=== PATIENT | male | born 1975 | race Caucasian/White ===

== ENCOUNTER 2016-09-17 15:06 | Emergency (ER) | payer BC ==
--- NOTE | 2016-09-17 15:56 | UC ---
Laceration HPI - HPI Summary HPI Summary: 41 y/o male presents to the urgent care c/o Left # 2 finger with a laceration with a bow saw around 1400pm. Pt reports he was cutting a branch when he cut his finger, he cleaned the wound with hydrogen peroxide and applied pressure. Bleeding stopped and pain is 5/10 now. Pt states last Tetanus shot 1 year ago. Pt denies fever, SOB, chest pain, N/V/D. Pt has not other complains. - History Of Current Complaint Chief Complaint: UCLaceration Stated Complaint: FINGER LAC Time Seen by Provider: 09/17/16 15:48 Hx Obtained From: Patient Laceration Location: Finger - Left #2 phalax with laceration near the MCPJ Onset/Duration: Sudden Onset, Lasting Hours, Still Present Severity: Moderate Pain Intensity: 5 Pain Scale Used: 0-10 Numeric Aggravating Factors: Movement Related History: Dominant Hand Right - Allergies/Home Medications Allergies/Adverse Reactions: Allergies Allergy/AdvReac Type Severity Reaction Status Date / Time No Known Allergies Allergy Verified 10/07/15 21:49 PMH/Surg Hx/FS Hx/Imm Hx Previously Healthy: Yes - Surgical History Surgical History: Yes Surgery Procedure, Year, and Place: NASAL PASSAGE OPENING - Family History Known Family History: Positive: None, Cardiac Disease - Social History Occupation: Employed Full-time Lives: With Family Alcohol Use: None Substance Use Type: None Smoking Status (MU): Never Smoked Tobacco - Immunization History Most Recent Tetanus Shot: UNKNOWN Review of Systems Constitutional: Negative Skin: Other - Superficial Laceration to #2 phalax near the MCPJ with a bow saw Eyes: Negative ENT: Negative Respiratory: Negative Cardiovascular: Negative Gastrointestinal: Negative Genitourinary: Negative Motor: Negative Neurovascular: Negative Musculoskeletal: Negative Neurological: Negative Psychological: Negative All Other Systems Reviewed And Are Negative: Yes Physical Exam Triage Information Reviewed: Yes Appearance: Well-Appearing, No Pain Distress, Well-Nourished, Thin Vital Signs: Initial Vital Signs Temp 98.3 F 09/17/16 15:18 Pulse 68 09/17/16 15:18 Resp 18 09/17/16 15:18 BP 97/58 09/17/16 15:18 Pulse Ox 98 09/17/16 15:18 Vital Signs Reviewed: Yes Eyes: Positive: Conjunctiva Clear - PERRLA, EOMI, fundi grossly normal ENT Exam: Normal ENT: Positive: Normal ENT inspection, Hearing grossly normal, Pharynx normal, TMs normal Dental Exam: Normal Neck exam: Normal Neck: Positive: Supple, Nontender, No Lymphadenopathy Respiratory Exam: Normal Respiratory: Positive: Chest non-tender, Lungs clear, Normal breath sounds Cardiovascular Exam: Normal Cardiovascular: Positive: RRR, No Murmur, Pulses Normal Abdominal Exam: Normal Abdomen Description: Positive: Nontender, No Organomegaly, Soft. Negative: CVA Tenderness (R), CVA Tenderness (L) Bowel Sounds: Positive: Present Musculoskeletal Exam: Normal Neurological Exam: Normal Psychological Exam: Normal Skin: Positive: significant lesion(s) - Rt # 2 phalax with superficial laceration near the MCPJ with a bow saw. Size: 2 1/2 cm FROM of phalanx, positive sensation, capillary refill intact, Pulses positive. Laceration Course/Dx - Course/Dx Course Of Treatment: 41 y/o male presents to the urgent care c/o Left # 2 finger with a laceration with a bow saw around 1400pm. Pt reports he was cutting a branch when he cut his finger, he cleaned the wound with hydrogen peroxide and applied pressure. Bleeding stopped and pain is 5/10 now. Pt states last Tetanus shot 1 year ago. Pt denies fever, SOB, chest pain, N/V/D. Pt has not other complains Hx obtained. PE abnormal findings: Rt # 2 phalax with superficial laceration near the MCPJ with a bow saw. Size: 2 1/2 cm FROM of phalanx, positive sensation, capillary refill intact, Pulses positive. Wound irrigation ordered and Pt requested to anesthesize wound for irrigation. Procedure explained to Pt and time out performed. Pt consented. LIcocaine 2% 5ml ordered. Pt up to date with Tetanus vaccine. Copious irrigation was done with saline and the wound explored. There was no FB or deep structure injury note, FROM of phalax. Wound anesthesized with 4ml of Lidocaine 2% godd anethesia was otained. Pt had a mild vasovagal episode after injection. He recover after drinking apple juice given by nurse. Sterile drape and prep There were 5 of sutures. The length of the wound after closure was 2cm. No debridement done. Wound was covered with sterile nonadherent dressing. The Pt tolerated the procedure well without adverse effects. Neurovascular intact. DR Giordano agreed with wound laceration. Pt Rx Keflex and Ibuprofen, Advised suture removal in 10 days with PCP or at the clinic. Advised if fever develops or redness or signs of infection despite ABx to return for further evaluation. Pt understood and agreed. Left the clinic ambulating. - Differential Dx - Laceration/Wound Differental Diagnoses: Abrasion, Cellulitis, Laceration, Puncture Wound, Tendon Laceration Provider Diagnoses: Laceration to Left # 2 phalax Discharge - Discharge Plan Condition: Stable Disposition: HOME Prescriptions: Cephalexin CAP* [Keflex CAP*] 500 mg PO TID #21 cap Ibuprofen TAB* [Motrin TAB* 800 MG] 800 mg PO Q8HR PRN #20 tab PRN Reason: Pain Patient Education Materials: Care For Your Stitches (ED), Finger Laceration (ED ) Referrals: Jadon Ramos MD [Primary Care Provider] - 1 Week Additional Instructions: Please take medications as instructed and finish the full course of treatment to avoid infection. Pleas Avoid excessive movement with your finger, keep wound dry and clean. F/u suture removal in 10 days with your PCP or return to the clinic. If fever or redness develops around wound despite antibiotic, you should either follow up with your PCP or return to the urgent care for further evaluation and treatment.
[2016-09-17] MEDS ORDERED: Lidocaine 2% PF * 5 ML VIAL INJ ONE (15:57)
[2016-09-17 17:24] VITALS: BP 102/58
== END 2016-09-17 17:25 | disposition home or self-care (01) ==
LOC: UCEAST 15:06
DX: S61.211A Laceration without foreign body of left index finger without damage to nail, initial encounter (principal); W27.8XXA Contact with other nonpowered hand tool, initial encounter
CPT/HCPCS: 12001; 99212; G0463

== ENCOUNTER 2016-10-01 20:45 | Emergency (ER) | payer BC ==
[2016-10-01 20:52] VITALS: BP 105/65
--- NOTE | 2016-10-01 21:25 | UC ---
HPI Wound/Suture Re-check - HPI Summary HPI Summary: 14 DAYS AGO HAD SUTURES PLACED IN RIGHT HAND AFTER ACCIDENT WITH SAW. OCC - History Of Current Complaint Chief Complaint: UCSkin Stated Complaint: STITCHES REMOVED Time Seen by Provider: 10/01/16 20:56 Hx Obtained From: Patient, Family/Field Service Technician Onset/Duration: Sudden Onset, Lasting Weeks, Resolved Severity: Mild - Allergies/Home Medications Allergies/Adverse Reactions: Allergies Allergy/AdvReac Type Severity Reaction Status Date / Time No Known Allergies Allergy Verified 10/07/15 21:49 Home Medications: Home Medications NK [No Home Medications Reported] 10/01/16 [History Confirmed 10/01/16] PMH/Surg Hx/FS Hx/Imm Hx Previously Healthy: Yes - Surgical History Surgical History: Yes Surgery Procedure, Year, and Place: NASAL PASSAGE OPENING - Family History Known Family History: Positive: None, Cardiac Disease - Social History Occupation: Employed Full-time Lives: With Family Alcohol Use: None Substance Use Type: None Smoking Status (MU): Never Smoked Tobacco - Immunization History Most Recent Tetanus Shot: UNKNOWN Review of Systems Constitutional: Negative Skin: Rash - FIVE SUTURES IN HEALING WOUND TO RIGHT SECOND FINGER Eyes: Negative ENT: Negative Respiratory: Negative Cardiovascular: Negative Gastrointestinal: Negative Genitourinary: Negative Motor: Negative Neurovascular: Negative Musculoskeletal: Negative Neurological: Negative Psychological: Negative All Other Systems Reviewed And Are Negative: Yes Physical Exam Triage Information Reviewed: Yes Appearance: Well-Appearing, No Pain Distress, Well-Nourished Vital Signs: Initial Vital Signs Temp 98.2 F 10/01/16 20:50 Pulse 57 10/01/16 20:50 Resp 18 10/01/16 20:50 BP 105/65 10/01/16 20:50 Pulse Ox 100 10/01/16 20:50 Vital Signs Reviewed: Yes Eye Exam: Normal ENT Exam: Normal ENT: Positive: Normal ENT inspection, TMs normal Dental Exam: Normal Neck exam: Normal Respiratory Exam: Normal Respiratory: Positive: Chest non-tender, Lungs clear, Normal breath sounds, No respiratory distress Cardiovascular Exam: Normal Cardiovascular: Positive: RRR, No Murmur, Pulses Normal Abdominal Exam: Normal Musculoskeletal Exam: Normal Neurological Exam: Normal Psychological Exam: Normal Skin: Positive: Other - FIVE SUTURES IN HEALING WOUND TO RIGHT SECOND FINGER Course/Dx - Differential Dx - Laceration/Wound Differential Diagnoses: Healing Wound, Suture Removal Provider Diagnoses: FIVE SUTURES REMOVED FROM HEALING WOUND TO RIGHT SECOND FINGER Discharge - Discharge Plan Condition: Stable Disposition: HOME Patient Education Materials: Stitches Removal (ED) Referrals: Jadon Ramos MD [Primary Care Provider] - Jennifer Foster MD [Medical Doctor] - If Needed
== END 2016-10-01 21:29 | disposition home or self-care (01) ==
LOC: UCEAST 20:45
DX: Z48.02 Encounter for removal of sutures (principal)
CPT/HCPCS: 99212; G0463